=== PATIENT | female | born 2000 | race Caucasian/White ===

== ENCOUNTER 2024-01-16 11:35 | Emergency (ER) | payer SELFPAY ==
[2024-01-16 11:49] VITALS: RESP 18; BMI 23.3
[2024-01-16 12:01] VITALS: BP 114/73; PULSE 63; TEMP 98.4
[2024-01-16] MEDS ORDERED: ACETAMINOPHEN INJECTION 100 ML IVPB ONE (12:17)
[2024-01-16] MEDS: SODIUM CHLORIDE 0.9% 500 ML INFUS.BAG IV ONE (12:30)
[2024-01-16] MEDS: ACETAMINOPHEN 1000 MG/100 ML BAG IVPB ONE (12:32)
[2024-01-16] MEDS ORDERED: ONDANSETRON 4 MG/2 ML VIAL ONE (12:33)
[2024-01-16 12:36] LABS: HEMATOCRIT 38.5 % (32.4-45.2); HEMOGLOBIN 13.1 G/dL (10.7-15.3); MCH 29.6 pg (25.7-33.7); MCHC 33.9 g/dl (32.0-36.0); MEAN CELL VOLUME 87.2 fl (80-96); MEAN PLT VOLUME 9.2 fl (7.5-11.1); RBC 4.41 10^6/uL (3.60-5.2); WHITE BLOOD COUNT 10.7 10^3/uL (4.0-10.8)
[2024-01-16 13:05] LABS: HCG,QUALITATIVE URINE NEGATIVE
[2024-01-16 13:10] LABS: ALBUMIN 4.7 g/dl (3.4-5.0); ALK PHOS 53 U/L (45-117); ANION GAP 10 mmol/L (4-13); BILIRUBIN,TOTAL 1.2 mg/dl (0.2-1); CALCIUM 9.7 mg/dl (8.5-10.1); CHLORIDE 103 mmol/L (98-107); CO2 23 mmol/L (21-32); CREATININE 0.9 mg/dl (0.6-1.3); GLUCOSE,RANDOM 133 mg/dl (74-106); POTASSIUM 4.2 mmol/L (3.5-5.1); SGOT/AST 15 U/L (15-37); SGPT/ALT 16 U/L (7-52); SODIUM 136 mmol/L (136-145); TOT PROT 7.3 g/dl (6.4-8.2)
[2024-01-16 13:16] LABS: INR 1.03 (0.83-1.09); PROTHROMBIN TIME (PATIENT) 11.7 SEC (9.7-13.0)
[2024-01-16 13:17] LABS: ACTIVATED PTT 30.2 SECONDS (25.2-36.5)
[2024-01-16 13:25] LABS: PLATELET ESTIMATE ADEQUATE
[2024-01-16] MEDS: ONDANSETRON 4 MG/2 ML VIAL IVPUSH ONE (16:20)
== END 2024-01-16 16:35 | disposition home or self-care (01) ==
LOC: FER 11:35
DX: N13.2 Hydronephrosis with renal and ureteral calculous obstruction (principal); R10.31 Right lower quadrant pain; R11.0 Nausea; R50.9 Fever, unspecified
CPT/HCPCS: 36415; 74177-TC; 80053; 81003; 81015; 84703; 85027; 85610; 85730; 86850; 86900; 86901; 99285-25; J0131; Q9967